=== PATIENT | female | born 1970 | race Two or more races ===

== ENCOUNTER → 2024-03-23 | Outpatient (CLI) | payer MEDICAID, SELFPAY ==
--- NOTE | 2024-03-23 08:00 | XR_ITS ---
Examination: Screening digital mammography, bilateral Computer aided detection 3-D breast Tomosynthesis, bilateral Date and time of exam: March 23, 2024 0739 hrs. Compared to mammograms dating to May 25, 2018 Indication: Screening Technique: Nonmagnified MLO, CC views of the breasts to been obtained, reconstructed from 3-D Tomosynthesis images. R2 computer aided detection program utilized for evaluation of suspicious masses and/or abnormal calcifications. 3-D Tomosynthesis images obtained. Findings: Scattered areas of fibroglandular density Stable focal 3 mm asymmetry outer left breast Benign calcifications. No interval suspicious masses Impression: BI-RADS category II: Benign Findings. Recommend 1 year follow-up mammogram.
== END | disposition home or self-care (01) ==
LOC: CDIM 07:28
PROVIDERS: PCP Physician Assistant; Referring Provider Physician Assistant; Visit Provider Physician Assistant
DX: Z12.31 Encounter for screening mammogram for malignant neoplasm of breast (principal); R92.323 Mammographic fibroglandular density, bilateral breasts; R92.1 Mammographic calcification found on diagnostic imaging of breast
CPT/HCPCS: 77063; 77067

== ENCOUNTER 2024-12-06 08:10 | Day surgery (SDC) | payer MEDICAID, SELFPAY ==
[2024-12-05 15:08] VITALS: BMI 29.0
[2024-12-06] VITALS (10 sets, daily range): BP systolic 104–139; BP diastolic 62–100; PULSE 77–95; RESP 12–24; TEMP 36.8; O2SAT 96–100; BMI 28.5
[2024-12-06] MEDS: RINGERS LACTATED 500 ML 500 ML 20 ML IV (10:14)
[2024-12-06] MEDS: ONDANSETRON INJ 2 MG/ML INJ 2 ML 4 MG IVP ×2 (10:14→10:43)
[2024-12-06] MEDS: MIDAZOLAM INJ 1 MG/ML VIAL 2 ML (ASD USE ONLY) 2 MG IVP (10:17)
[2024-12-06] MEDS: fentaNYL CIT INJ 50 mCg/ML AMP 2ML (ASD USE ONLY) IVP (10:17)
== END 2024-12-06 11:28 | disposition home or self-care (01) ==
PROVIDERS: PCP Physician Assistant; Referring Provider Internal Medicine Gastroenterology; Visit Provider Internal Medicine Gastroenterology
PROC: 0DBE8ZX Excision of Large Intestine, Via Natural or Artificial Opening Endoscopic, Diagnostic (ICD-10-PCS; CPT 45380; principal; 2024-12-06 09:45)
DX: K52.9 Noninfective gastroenteritis and colitis, unspecified (principal); I10 Essential (primary) hypertension; K64.1 Second degree hemorrhoids
CPT/HCPCS: 45380; A4649; J1200; J2250; J2405; J3010; J7120

== ENCOUNTER 2024-12-18 07:10 | Day surgery (SDC) | payer MEDICAID, SELFPAY ==
[2024-12-17 12:35] VITALS: BMI 28.9
[2024-12-18] VITALS (8 sets, daily range): BP systolic 107–136; BP diastolic 72–91; PULSE 69–88; RESP 12–183; TEMP 36.4–36.7; O2SAT 92–100; BMI 28.9
[2024-12-18] MEDS: MIDAZOLAM INJ 1 MG/ML VIAL 2 ML (ASD USE ONLY) 2 MG IVP (09:36)
[2024-12-18] MEDS: RINGERS LACTATED 500 ML 500 ML 20 ML IV (09:36)
[2024-12-18] MEDS: BENZOCAINE 20% (Hurricaine) SPRAY 1 DOSE TOP (09:36)
[2024-12-18] MEDS: fentaNYL CIT INJ 50 mCg/ML AMP 2ML (ASD USE ONLY) IVP (09:37)
== END 2024-12-18 10:15 | disposition home or self-care (01) ==
PROVIDERS: PCP Physician Assistant; Referring Provider Internal Medicine Gastroenterology; Visit Provider Internal Medicine Gastroenterology
PROC: (CPT 43239; principal; 2024-12-18 08:15)
DX: K31.7 Polyp of stomach and duodenum (principal); K29.70 Gastritis, unspecified, without bleeding; T18.2XXA Foreign body in stomach, initial encounter; I10 Essential (primary) hypertension
CPT/HCPCS: 43239; 81025; A4649; J1200; J2250; J3010; J7120; A9270

== ENCOUNTER 2024-12-26 12:29 | Emergency (ER) | payer MEDICAID, SELFPAY ==
[2024-12-26 13:10] VITALS: BP 110/77; PULSE 87; RESP 18; TEMP 36.8; O2SAT 100
--- NOTE | 2024-12-26 13:20 | XR_ITS ---
Examination: Right elbow 3 views Technique: Elbow AP, oblique, lateral 3 views Exam date and time: December 31, 2024: 1320 hours INDICATIONS: Patient fell today with into the elbow, elbow pain. FINDINGS: No acute fracture No dislocation IMPRESSION: No acute fracture.
--- NOTE | 2024-12-26 13:20 | XR_ITS ---
Examination: Shoulder, right, 3 views Technique: Shoulder AP internal rotation, AP external rotation, Y view shoulder, 3 views Exam date and time : December 26, 2024, 1320 hours INDICATIONS: Patient fell today with into the shoulder, shoulder pain. FINDINGS: No shoulder fracture or dislocation No AC joint separation IMPRESSION: No shoulder fracture or dislocation
--- NOTE | 2024-12-26 13:20 | XR_ITS ---
Examination: Humerus 2 views right Technique: Humerus, AP lateral 2 views Date and time of exam: December 26: 2024, 1320 hours INDICATIONS: Patient fell today with injury to the right arm, right humerus pain. FINDINGS: No shoulder fracture or foreign body Shaft of the humerus intact IMPRESSION: No acute fracture
--- NOTE | 2024-12-26 14:07 | EDNOTE_ITS ---
<Statement entered by Mi Diallo MD - 12/29/24 18:00> As co-signing physician, I was present and available for consult prn. I concur with the plan and care as documented by the midlevel provider. ED Fall Injury RME/HPI General Chief Complaint: Fall Stated Complaint: Fall, right shoulder, right arm pain Time Seen by Provider: 12/26/24 12:39 Arrival date/time: 12/26/24 12:29 54-year-old female presents to the emergency room today for complaint of ground- level fall patient reports she slipped and fell on the puddle of water in her house Limitations: no limitations Related Data Home Medications ?Medication ?Instructions ?Recorded ?Confirmed levetiracetam 1,000 mg tablet 1,000 mg PO QMORNING 07/2512/17/24 levothyroxine 25 mcg tablet 25 mcg PO QDAY 07/04/20 divalproex 500 mg tablet,delayed 500 mg PO BID 2 12/17/24 release cenobamate 50 mg tablet (Xcopri) 200 mg PO QDAY 12/17/24 Previous Rx's ?Medication ?Instructions ?Recorded hydrocortisone acetate 25 mg 25 mg TX QHS #24 ea 08/07 rectal suppository (Anusol-HC) hydrocodone 5 mg-acetaminophen 325 1 tab PO BID PRN pa in #10 tabs 12/26/24 mg tablet ibuprofen 800 mg tablet 800 mg PO TID PRN pain #30 t abs 12/26/24 Allergies Allergy/AdvReac Type Severity Reaction Status Date / Time No Known Allergies Allergy Verified 12/26/24 12:34 Review of Systems Review of Systems Systems Reviewed: All systems reviewed, normal except as documented Constitutional Constitutional: Reports system reviewed and no additional complaints, except as documented, Denies fever(s) and Denies headache(s) Eyes Eyes: Reports system reviewed and no additional complaints, except as documented and Denies blurry vision ENT Ears, Nose, Mouth, and Throat: Reports system reviewed and no additional complaints, except as documented, Denies headache(s), Denies nasal congestion and Denies nasal discharge Cardiovascular Cardiovascular: Reports system reviewed and no additional complaints, except as documented, Denies chest pain and Denies dyspnea Respiratory Respiratory: Reports system reviewed and no additional complaints, except as documented, Denies chest congestion, Denies cough and Denies dyspnea Gastrointestinal Gastrointestinal: Reports system reviewed and no additional complaints, except as documented and Denies abdominal pain Musculoskeletal Musculoskeletal: Reports system reviewed and no additional complaints, except as documented, Denies deformity, Denies numbness, Reports stiffness, Denies tingling and Reports other (Right arm pain) Integumentary/Breasts Skin/Breast: Reports system reviewed and no additional complaints, except as documented and Denies rash Neurologic Neurologic: Reports system reviewed and no additional complaints, except as documented, Reports as per HPI, Denies headache(s), Denies numbness and Denies tingling Past Medical History Past Medical History NEUROLOGIC: Positive Neurological Disorders, Seizures (LAST SEIZURE IN JUNE 2024) and Epilepsy CARDIAC: Negative Cardiac Disorders, Congestive Heart Failure, Edema, Cellulitis or Varicose Veins RESPIRATORY: Negative Chronic Obstructive Pulmonary Disease (COPD) or Tuberculosis GASTROINTESTINAL: Positive Gastrointestinal Disorders (NAUSEA, CONSTIPATION), Gall Bladder Disease, Hemorrhoids and Gastroesophageal Reflux Disease; Negative Hepatitis GENITOURINARY: Negative Genitourinary Disorders or Renal Disease REPRODUCTIVE: Positive Previous Pregnancies MUSCULOSKELETAL: Negative Musculoskeletal Disorders ENDOCRINE: Positive Endocrine Disorders and Hypothyroidism; Negative Diabetes Mellitus Type 1 or Diabetes Mellitus Type 2 HEMATOLOGIC: Negative Blood Disorders PSYCHO/SOCIAL: Positive Depression and Anxiety OTHER HISTORY: Negative Hospitalization, Autoimmune Disease, Shingles, Falls, Blood Transfusions, Anesthesia Reactions, Chemotherapy, Radiation Therapy, Chicken Pox, Measles, Mumps or Cancer Family History FAMILY HISTORY: Positive Family Gastrointestinal Problems and Family Surgery; Negative Family Psychiatric Problems, Family Respiratory Disorders, Family Cardiac Disorders, Family Cancer or Family Anesthesia Reaction Surgical History SURGICAL: Positive Tubal Ligation; Negative Pacemaker Social History SMOKING STATUS: Never smoker ED Exam General Limitations: Present no limitations General appearance: Present alert and in no apparent distress Head Head exam: Present atraumatic Eye Eye exam: Present normal appearance, PERRL and EOMI ENT ENT exam: Present normal exam, normal oropharynx and mucous membranes moist Neck Neck exam: Present normal inspection, full ROM and trachea midline Chest Chest inspection: Present normal inspection and symmetric chest wall rise Respiratory Respiratory exam: Present normal lung sounds bilaterally Cardiovascular Cardiovascular exam: Present regular rate, normal rhythm and normal heart sounds Abdominal Exam Abdominal exam: Present soft and normal bowel sounds Extremities Exam Extremities exam: Present full ROM, tenderness and normal capillary refill; Absent joint swelling Back Exam Back exam: Present normal inspection and full ROM Neurological Exam Neurological exam: Present alert, oriented X3 and CN II-XII intact Psychiatric Psychiatric exam: Present normal affect and normal mood Skin Skin exam: Present warm, dry, intact and normal color Course Quality Measures none Orders Category Date Time Status XR elbow comp RT min 3V Stat Exams 12/26/24 13:20 Completed XR humerus RT min 2V Stat Exams 12/26/24 13:20 Completed XR shoulder RT min 2V Stat Exams 12/26/24 13:20 Completed Vital Signs Vital signs: Vital Signs Temperature 98.3 F 12/26/24 13:10 Pulse Rate 87 12/26/24 13:10 Respiratory Rate 18 12/26/24 13:10 Blood Pressure 110/77 12/26/24 13:10 Pulse Oximetry (%) 100 12/26/24 13:10 Oxygen Delivery Method Room Air 12/26/24 13:10 O2 saturation 100% on room air within normal limits Fall MDM Narrative MDM Narrative:: 54-year-old female presents to the emergency room today for complaint of ground- level fall patient reports she slipped and fell on the puddle of water in her house On exam patient reports pain to the right arm Elbow, humerus, shoulder x-rays obtained no acute fracture dislocation noted Patient placed in a sling Patient discharged home in no distress to follow-up with primary care doctor in the next 24 to 48 hours and for any worsening symptoms to return to the ER immediately Patient data External records reviewed:: [facility] previous records Clinical information provided by:: patient Social determinants that could affect healthcare access:: none Patient has the following chronic illnesses:: None How is presenting disease/condition affected by chronic disease/condition?: no chronic disease Evaluation data The following diagnostics were reviewed and interpreted by me:: radiology exam(s) Lab and/or radiology exams considered but not ordered:: Radiology obtained Interpretation Summary: Reviewed by me Medications / Prescriptions Medications or Prescriptions considered but not ordered:: Given Medication administrations:: Given Consultations Consultation(s) initiated? (list below): No Diagnosis Fall Differential Diagnosis: other (Right arm contusion, right arm fracture) Most likely diagnosis given after review of the tests above:: Contusion right arm Admission Indicated Admission indicated?: not indicated Admission Request Was there a request for admission?: No Disposition Plan Disposition Plan: Discharge Discharge Attestation Discharge Attestation: The patient and all family members were given an opportunity to ask questions and understood the discharge instructions. Discharge instructions specifically effects, indications for sooner follow up or return to the emergency department, and the expected course of current diagnosis. Patient condition: Stable Discharge Plan Plan Patient Disposition: HOME (Self Care) Discharge Disposition comment: Stable Prescriptions/Referrals Prescriptions/Med Rec: New ibuprofen 800 mg tablet 800 mg PO TID PRN (Reason: pain) Qty: 30 0RF hydrocodone-acetaminophen 5-325 mg tablet 1 tab PO BID MDD 10 PRN (Reason: pain) Qty: 10 0RF No Action divalproex 500 mg tablet,delayed release (DR/EC) 500 mg PO BID hydrocortisone acetate [Anusol-HC] 25 mg suppository 25 mg [place] QHS Qty: 24 0RF levothyroxine 25 mcg Tablet 25 mcg PO QDAY levetiracetam 1,000 mg Tablet 1,000 mg PO QMORNING Xcopri 50 mg Tablet 200 mg PO QDAY Rx Instructions: administer weeks 5 and 6 of therapy Referrals: Rita Crum PA-C [Primary Care Provider, Family Practice] - 12/27/24 Problem List Clinical Impression: Contusion of arm, right Patient/Caregiver Discharge Instructions Education Materials: Bruises (Contusions) Additional Instructions: Please follow up with your primary care doctor in the next 24-48hrs for any worsening symptoms return here immediately Print Language: Welsh Stand Alone Forms: Caitlin Award Info., Work/School Release, Patient Portal Info Letter PA/MARSHALL Supervising Physician PA/MARSHALL Supervising Physician: Dr. diallo
== END 2024-12-26 14:57 | disposition home or self-care (01) ==
PROVIDERS: Emergency Provider Nurse Practitioner Primary Care; PCP Physician Assistant
DX: S40.011A Contusion of right shoulder, initial encounter (principal); S40.021A Contusion of right upper arm, initial encounter; W01.0XXA Fall on same level from slipping, tripping and stumbling without subsequent striking against object, initial encounter; Y92.009 Unspecified place in unspecified non-institutional (private) residence as the place of occurrence of the external cause; Z95.0 Presence of cardiac pacemaker
CPT/HCPCS: 73030; 73060; 73080; 99282; A4565

== ENCOUNTER → 2025-01-08 | Outpatient (CLI) | payer MEDICARE, MEDICAID, SELFPAY ==
--- NOTE | 2025-01-08 13:00 | XR_ITS ---
MRI shoulder, right, without contrast. Date and time: January 08, 2025, 1347 hours INDICATIONS: Patient slipped and fell December 26, 2024 injury to the shoulder joint clicking decreased abduction Technique: Multiple axial, sagittal and coronal sections of the shoulder have been obtained. Siemens high-resolution 1.5 [employer] MRI scanner is utilized. Axial fat-suppressed sections, TR 2350, TE 18 T2-weighted coronal fat-saturated images, TR 3500, TE 7100 T1-weighted coronal images, TR 500, TE 15 T2-weighted sagittal fat-saturated images, TR 3500, TE 57 T1-weighted sagittal sections, TR 504, TE 13. Findings: Supraspinatus tendon insertion is intact. Infraspinatus tendon insertion is intact. Subscapularis insertion is intact. Subscapularis bursa is small. Long head of the biceps is in the bicipital groove. No definite tear of the biceps superior labral anchor is seen. Retraction of the musculotendinous junction of the rotator cuff is not seen . Tendinosis pattern is moderate. Distance between the acromium and humeral head is 6 mm Atrophy of the supraspinatus muscle is moderate. Atrophy of the infraspinatus muscle is mild. Sagittal sections demonstrate a horizontal acromion. Acromioclavicular joint demonstrates mild osteoarthritis . Osacromiale is not identified. Prominent marrow edema in the humeral head with nondisplaced fracture of the greater tuberosity. Bony glenoid fossa on the sagittal sections does not demonstrate osseous defect. Occult fracture or area of avascular necrosis is not seen. Acromioclavicular joint separation is not visible. Defect in the posterolateral margin of the humeral head is not seen Impression: Rotator cuff intact Bone contusion humeral head Nondisplaced fracture greater tuberosity humeral head
== END | disposition home or self-care (01) ==
PROVIDERS: PCP Physician Assistant; Referring Provider Physician Assistant; Visit Provider Physician Assistant
DX: S40.021A Contusion of right upper arm, initial encounter (principal); S42.391A Other fracture of shaft of right humerus, initial encounter for closed fracture; W01.0XXA Fall on same level from slipping, tripping and stumbling without subsequent striking against object, initial encounter
CPT/HCPCS: 73221

== ENCOUNTER → 2025-02-20 | Outpatient (CLI) | payer MEDICAID, SELFPAY ==
--- NOTE | 2025-02-20 12:56 | XR_ITS ---
Examination: Shoulder, right, 3 views Technique: Shoulder AP internal rotation, AP external rotation, Y view shoulder, 3 views Exam date and time : February 20, 2025, 1315 hours INDICATIONS: Patient fell December 2024 with injury to the shoulder, shoulder pain. FINDINGS: Significant osteopenia Suspicious for nondisplaced fractures greater tuberosity of the humeral head No dislocation IMPRESSION: Consider CT shoulder without contrast follow-up to exclude nondisplaced fractures greater tuberosity humeral head
== END | disposition home or self-care (01) ==
PROVIDERS: PCP Orthopaedic Surgery; Referring Provider Orthopaedic Surgery; Visit Provider Orthopaedic Surgery
DX: S42.254A Nondisplaced fracture of greater tuberosity of right humerus, initial encounter for closed fracture (principal); X58.XXXA Exposure to other specified factors, initial encounter
CPT/HCPCS: 73030